=== PATIENT | male | born 1955 | race Caucasian/White ===

== ENCOUNTER → 2022-01-17 15:40 | Outpatient (CLI) | payer MEDICARE, SELFPAY ==
--- NOTE | 2022-01-17 15:59 | MR_ITS ---
PROCEDURE INFORMATION: Exam: MR Head Without Contrast Exam date and time: 01/17/2022 4:22 PM Age: 66 years old Clinical indication: Pain; Headache; Additional info: Memory loss TECHNIQUE: Imaging protocol: Magnetic resonance imaging of the head without contrast. COMPARISON: No relevant prior studies available. FINDINGS: Brain: There is relative asymmetric decreased volume loss of the right cerebral hemisphere relative to the left. There are scattered foci of FLAIR hyperintensity within the cerebral white matter. There is no mass effect or restricted diffusion associated with these foci. In a patient this age, this likely represents chronic small vessel ischemic disease. No cerebral edema. Mild cerebellar volume loss/atrophy. A few tiny foci of T2 hyperintensity are seen within the pineal gland, which are likely incidental. There is flattening of the the medulla anteriorly, with adjacent right vertebral artery. T2 hyperintensity is identified within the noel. Differential considerations include chronic ischemic change, demyelination, and osmotic demyelination syndrome. Cerebral ventricles: There is moderate prominence of the ventricles and sulci, compatible with atrophy. Pituitary gland and sella: Partially empty sella. Bones/joints: Degenerative changes are visualized within the upper cervical spine. Evaluation of the cervical spine is limited. Paranasal sinuses: Minimal mucosal thickening of the maxillary sinuses, left side greater than right. Minimal mucosal thickening of a few ethmoid air cells. Mastoid air cells: Minimal mucosal thickening/effusion within right mastoid air cells inferiorly. Orbital cavities: Unremarkable. Soft tissues: Unremarkable, as visualized. IMPRESSION: 1. Moderate atrophy. 2. Mild white matter disease, likely representing chronic small vessel ischemic disease. 3. T2 hyperintensity is identified within the noel. Differential considerations include chronic ischemic change, demyelination, and osmotic demyelination syndrome. 4. Partially empty sella. 5. Additional findings described above.
== END ==
PROVIDERS: PCP Family Medicine; Visit Provider Family Medicine
DX: R41.3 Other amnesia (principal)
CPT/HCPCS: 70551

== ENCOUNTER → 2022-01-19 17:02 | Outpatient (CLI) | payer MEDICARE, SELFPAY ==
--- NOTE | 2022-01-19 17:30 | XR_ITS ---
PROCEDURE INFORMATION: Exam: XR Chest Exam date and time: 01/19/2022 5:31 PM Age: 66 years old Clinical indication: Shortness of breath; Additional info: SOA TECHNIQUE: Imaging protocol: Radiologic exam of the chest. Views: 2 views. COMPARISON: No relevant prior studies available. FINDINGS: Airway: Patent Lungs: COPD/emphysema is appreciated. Diffuse chronic appearing interstitial prominence. This is most pronounced in the bilateral lung bases posteriorly. Pleural spaces: Blunting of the posterior costophrenic angles. Lateral costophrenic angles are clear. No pneumothorax. Heart/Mediastinum: Moderate cardiomegaly. Bones/joints: No acute skeletal abnormality or aggressive osseous lesion. IMPRESSION: 1. 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 2. Posterior costophrenic angle findings may be related to scarring/atelectasis or trace pleural effusions. 3. No significant airspace disease is appreciated.
--- NOTE | 2022-01-19 17:44 | ECG_ITS ---
APPROVED REPORT Exam: Resting ECG HR:66 bpm ECG Measurements Heart Rate 66 AXES ND 167 P 68 QRSd 108 QRS 94 QT 402 T 51 QTc 415 Conclusion SINUS RHYTHM BORDERLINE RIGHT AXIS DEVIATION [QRS AXIS > 90] INCOMPLETE RIGHT BUNDLE BRANCH BLOCK [90+ ms QRS DURATION, TERMINAL R IN V1/V2, 40+ ms S IN I/aVL/V4/V5/V6] BORDERLINE ECG UNCONFIRMED REPORT Electronically signed by : Checo Mackenzie MD 01/20/2022 15:36:01
== END ==
PROVIDERS: PCP Family Medicine; Visit Provider Family Medicine
DX: R06.02 Shortness of breath (principal)
CPT/HCPCS: 71046; 93005

== ENCOUNTER → 2022-03-09 08:38 | Outpatient (CLI) | payer MEDICARE, SELFPAY | LOC: SL 08:40 | PROVIDERS: PCP Family Medicine; Visit Provider Nurse Practitioner Family | DX: G47.34 Idiopathic sleep related nonobstructive alveolar hypoventilation (principal); F10.10 Alcohol abuse, uncomplicated; G93.40 Encephalopathy, unspecified; Z78.9 Other specified health status | CPT/HCPCS: 94762 ==